=== PATIENT | male | born 1985 | race Caucasian/White ===

== ENCOUNTER 2019-04-06 21:34 | Emergency (ER) | payer OTHER ==
[~2019-04-06] VITALS: Ht 160 cm; Wt 87.1 kg
[2019-04-07] MEDS ORDERED: ATARAX25 MG PO (01:49)
[2019-04-07] MEDS ORDERED: LOTRISONE CREAM45 GM TOP (01:49)
== END 2019-04-07 01:57 | disposition home or self-care (01) ==
LOC: ER 21:34
DX: R21 Rash and other nonspecific skin eruption (principal)

== ENCOUNTER 2020-07-24 15:55 | Emergency (ER) | payer OTHER ==
[~2020-07-24] VITALS: Ht 167.6 cm; Wt 86.2 kg
[~2020-07-24 15:55] MED LIST: ATARAX25 MG PO; LOTRISONE CREAM45 GM TOP
== END 2020-07-24 21:33 | disposition home or self-care (01) ==
LOC: ER 15:55
DX: R22.0 Localized swelling, mass and lump, head (principal); T50.B95A Adverse effect of other viral vaccines, initial encounter; Y92.89 Other specified places as the place of occurrence of the external cause

== ENCOUNTER 2021-10-22 06:32 | Outpatient (CLI) | payer OTHER | END 2021-10-22 06:33 | disposition home or self-care (01) | LOC: LAB 06:32 | PROVIDERS: ATTEND Obstetrics & Gynecology | DX: Z20.828 Contact with and (suspected) exposure to other viral communicable diseases (principal) ==